=== PATIENT | female | born 1975 | race Caucasian/White ===

== ENCOUNTER 2023-02-16 10:12 | Emergency (ER) | payer OTHER ==
[2023-02-16] MEDS ORDERED: ACETAMINOPHEN 500 MG TABLET (FP) PO ONE (10:58)
[2023-02-16] MEDS ORDERED: LIDOCAINE 5% TOPICAL PATCH TP ONE (10:59)
[2023-02-16 11:03] VITALS: BP 134/81; PULSE 68; RESP 18; TEMP 98; BMI 34.7
[2023-02-16] MEDS ORDERED: ACETAMINOPHEN 500 MG TABLET (FP) ONE (11:05)
[2023-02-16] MEDS ORDERED: LIDOCAINE 5% TOPICAL PATCH ONE (11:05)
[2023-02-16] MEDS ORDERED: LIDOCAINE PATCH REMOVAL MC ONE (22:00)
== END 2023-02-16 14:00 | disposition left against medical advice (07) ==
LOC: FER 10:12
DX: R51.9 Headache, unspecified (principal); M25.511 Pain in right shoulder; R07.81 Pleurodynia; V49.50XA Passenger injured in collision with unspecified motor vehicles in traffic accident, initial encounter; Y93.89 Activity, other specified; Y92.410 Unspecified street and highway as the place of occurrence of the external cause
CPT/HCPCS: 70450-TC; 71101-TC-RT-FY; 73030-TC-RT-FY; 84703; 99285-25